=== PATIENT | female | born 1990 | race African-American/Black ===

== ENCOUNTER 2017-04-11 13:01 | Emergency (ER) | payer BC ==
[2017-04-11 13:20] VITALS: BP 118/80
--- NOTE | 2017-04-11 13:20 | EDM.PDOC ---
ED HPI GENERAL MEDICAL PROBLEM - General Chief Complaint: REWEAVER Problem Stated Complaint: 6 WEEKS PREG-BLEEDING AND PAIN Time Seen by Provider: 04/11/17 13:18 Source of Information: Reports: Patient History Limitations: Reports: No Limitations - History of Present Illness INITIAL COMMENTS - FREE TEXT/NARRATIVE: 26-year-old female presents to the ED with acute onset of vaginal bleeding which is bright red in color and with no clots .Associated lower abdominal cramping pain characteristic of menstrual cramps. last trimester. Was reported to be around February 23 making her about 6 weeks gestation. she is not trying to conceive. she's had one previous that ended in a . She is therefore 2 para 0. she has been feeling breast tenderness and associated nausea vomiting with vomiting 2 with morning sickness. does have diffuse associated low back cramping pain.. she has seen Dr. Balderas on several occasions and apparently beta-hCGs have been done repeatedly and we will have comparison values. I think there was some concern identified that her hCG was not doubling every 2-3 days as anticipated suggesting a possible failed . at present she states her pain is 8 out of 10 but she does not wish any analgesia. 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) Abdomen Pain Score (Numeric/FACES): 8 - Related Data Allergies Allergy/AdvReac Type Severity Reaction Status Date / Time No Known Allergies Allergy Verified 04/11/17 13:23 Home Meds: Home Meds Diclofenac Sodium [Voltaren] 50 mg PO Q8H PRN #8 tab.ec 04/11/17 [Rx] PNV95/Ferrous Fumarate/FA [ Tablet] 1 tab PO DAILY 04/11/17 [History] Robutussin Cough 5 ml PO ASDIRECTED 04/11/17 [History] Past Medical History REWEAVER History: Reports: : 2 ( last menstrual period was around February 23 making about 6 weeks gestation.) Para: 0 Social & Family History - Living Situation & Occupation Living situation: Reports: 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 Denies: Fever, Chills, Malaise, Weakness HEENT: Reports: Other ( has had a cold recently and is using some Robitussin plain.) Respiratory: Reports: Cough Cardiovascular: Reports: No Symptoms Endocrine: Reports: Fatigue ( minimal sputum production) GI/Abdominal: Reports: Abdominal Pain ( see history of present illness) : Reports: Other ( acute breakthrough bleeding per vagina without clotting with associated lower abdominal cramping pain) Musculoskeletal: Reports: Back Pain ( within the last hour.) Skin: Reports: No Symptoms Neurological: Reports: No Symptoms ( associated reymundo) Psychiatric: Reports: No Symptoms Hematologic/Lymphatic: Reports: No Symptoms Immunologic: Reports: No Symptoms ED EXAM - Physical Exam Exam: See Below Exam Limited By: No Limitations General Appearance: Alert, WD/WN, Mild Distress, Other ( claaims her pain as 8 out of 10 but she does not appear to be in that kind of distress.) Eye Exam: Bilateral Eye: Normal Inspection ( no signs of anemia) Throat/Mouth: Normal Inspection, Normal Oropharynx Head: Atraumatic, Normocephalic Neck: Normal Inspection, Supple, Non-Tender, Full Range of Motion Respiratory/Chest: No Respiratory Distress, Lungs Clear, Normal Breath Sounds, No Accessory Muscle Use Cardiovascular: Normal Peripheral Pulses, Regular Rate, Rhythm, No Murmur, No Rub GI/Abdominal Exam: Normal Bowel Sounds, Soft, No Organomegaly, Tender ( minimal tenderness suprapubically.). No: Guarding, Rigid, Rebound Back Exam: Normal Inspection, Full Range of Motion. No: CVA Tenderness (L), CVA Tenderness (R) Extremities: Normal Inspection, Normal Range of Motion, Non-Tender, No Pedal Edema, Normal Capillary Refill Neurological: Alert, Oriented, CN II-XII Intact, Normal Cognition, Normal Gait, Normal Reflexes, No Motor/Sensory Deficits Psychiatric: Normal Affect, Normal Mood Skin Exam: Warm, Dry, Intact, Normal Color, No Rash Course - Vital Signs Last Recorded V/S: Last Vital Signs Temp 36.6 C 04/11/17 13:18 Pulse 89 04/11/17 13:18 Resp 20 04/11/17 13:18 BP 118/80 04/11/17 13:18 Pulse Ox 100 04/11/17 13:18 - Orders/Labs/Meds Orders: Active Orders 24 hr Category Date Time Status OB Transvaginal [US] Stat Exams 04/11/17 13:30 Taken Sodium Chloride 0.9% [Normal Saline] 1,000 ml Med 04/11/17 13:30 Active IV ASDIRECTED Medication Orders Sodium Chloride (Normal Saline) 1,000 mls @ 150 mls/hr IV ASDIRECTED JUAQUIN Last Admin: 04/11/17 13:46 Dose: 150 mls/hr Labs: Laboratory Tests 04/11/17 04/11/17 04/11/17 Range/Units 13:35 14:00 14:00 WBC 7.48 (3.98-10.04) K/mm3 RBC 4.86 (3.98-5.22) M/mm3 Hgb 14.2 (11.2-15.7) gm/L Hct 43.7 (34.1-44.9) % MCV 89.9 (79.4-94.8) fl MCH 29.2 (25.6-32.2) pg MCHC 32.5 (32.2-35.5) g/dl RDW Std Deviation 44.2 (36.4-46.3) fL Plt Count 204 (182-369) K/mm3 MPV 10.1 (9.4-12.3) fl Neutrophils % (Manual) 83 H (40-60) % Band Neutrophils % 0 (0-10) % Lymphocytes % (Manual) 15 L (20-40) % Atypical Lymphs % 0 % Monocytes % (Manual) 1 L (2-10) % Eosinophils % (Manual) 1 (0.7-5.8) % Basophils % (Manual) 0 L (0.1-1.2) Platelet Estimate Adequate Plt Morphology Comment Normal RBC Morph Comment Normal Sodium 140 (136-145) mEq/L Potassium 3.9 (3.5-5.1) mEq/L Chloride 104 (98-107) mEq/L Carbon Dioxide 31 (21-32) mEq/L Anion Gap 8.9 (5-15) BUN 10 (7-18) mg/dL Creatinine 0.9 (0.55-1.02) mg/dL Est Cr Clr Drug Dosing 92.11 mL/min Estimated GFR (MDRD) > 60 (>60) mL/min BUN/Creatinine Ratio 11.1 L (14-18) Glucose 90 (74-106) mg/dL Calcium 9.8 (8.5-10.1) mg/dL Total Bilirubin 0.3 (0.2-1.0) mg/dL AST 18 (15-37) U/L ALT 18 (14-59) U/L Alkaline Phosphatase 43 L (46-116) U/L Total Protein 7.9 (6.4-8.2) g/dl Albumin 3.9 (3.4-5.0) g/dl Globulin 4.0 gm/dL Albumin/Globulin Ratio 1.0 (1-2) HCG, Qual (NEGATIVE) HCG, Quant 554.0 mIU/mL Urine Color Yellow (Yellow) Urine Appearance Clear (Clear) Urine pH 7.0 (5.0-8.0) Ur Specific [place]arl 1.015 (1.005-1.030) Urine Protein Negative (Negative) Urine Glucose (UA) Negative (Negative) Urine Ketones Negative (Negative) Urine Occult Blood Trace-lysed H (Negative) Urine Nitrite Negative (Negative) Urine Bilirubin Negative (Negative) Urine Urobilinogen 0.2 (0.2-1.0) Ur Leukocyte Esterase Negative (Negative) Urine RBC 0-5 (0-5) /hpf Urine WBC Not seen (0-5) /hpf Ur Epithelial Cells Not seen (0-5) /hpf Urine Bacteria Not seen (FEW) /hpf Urine Mucus Not seen (FEW) /hpf Blood Type 04/11/17 04/11/17 Range/Units 14:05 14:05 WBC (3.98-10.04) K/mm3 RBC (3.98-5.22) M/mm3 Hgb (11.2-15.7) gm/L Hct (34.1-44.9) % MCV (79.4-94.8) fl MCH (25.6-32.2) pg MCHC (32.2-35.5) g/dl RDW Std Deviation (36.4-46.3) fL Plt Count (182-369) K/mm3 MPV (9.4-12.3) fl Neutrophils % (Manual) (40-60) % Band Neutrophils % (0-10) % Lymphocytes % (Manual) (20-40) % Atypical Lymphs % % Monocytes % (Manual) (2-10) % Eosinophils % (Manual) (0.7-5.8) % Basophils % (Manual) (0.1-1.2) Platelet Estimate Plt Morphology Comment RBC Morph Comment Sodium (136-145) mEq/L Potassium (3.5-5.1) mEq/L Chloride (98-107) mEq/L Carbon Dioxide (21-32) mEq/L Anion Gap (5-15) BUN (7-18) mg/dL Creatinine (0.55-1.02) mg/dL Est Cr Clr Drug Dosing mL/min Estimated GFR (MDRD) (>60) mL/min BUN/Creatinine Ratio (14-18) Glucose (74-106) mg/dL Calcium (8.5-10.1) mg/dL Total Bilirubin (0.2-1.0) mg/dL AST (15-37) U/L ALT (14-59) U/L Alkaline Phosphatase (46-116) U/L Total Protein (6.4-8.2) g/dl Albumin (3.4-5.0) g/dl Globulin gm/dL Albumin/Globulin Ratio (1-2) HCG, Qual Positive H (NEGATIVE) HCG, Quant mIU/mL Urine Color (Yellow) Urine Appearance (Clear) Urine pH (5.0-8.0) Ur Specific [place]arl (1.005-1.030) Urine Protein (Negative) Urine Glucose (UA) (Negative) Urine Ketones (Negative) Urine Occult Blood (Negative) Urine Nitrite (Negative) Urine Bilirubin (Negative) Urine Urobilinogen (0.2-1.0) Ur Leukocyte Esterase (Negative) Urine RBC (0-5) /hpf Urine WBC (0-5) /hpf Ur Epithelial Cells (0-5) /hpf Urine Bacteria (FEW) /hpf Urine Mucus (FEW) /hpf Blood Type O POSITIVE Meds: Medications Generic Name Dose Route Start Last Admin Trade Name Freq PRN Reason Stop Dose Admin Sodium Chloride 1,000 mls @ 150 mls/hr 04/11/17 13:30 04/11/17 13:46 Normal Saline IV 150 mls/hr ASDIRECTED JUAQUIN Administration - Radiology Interpretation Free Text/Narrative:: 26-year-old female presents to the ED with acute onset of bleeding per vagina with associated menstrual cramping pain. she is confirm both at home and in the clinic and apparently beta-hCGs have been followed a couple of occasions and are not doubling as anticipated. Therefore concern appreciated for possible failing . I therefore will not perform a pelvic exam. Will proceed with a transvaginal ultrasound routine labs to include a beta hCG qualitative and quantitative levels and type and screen. at present she does not want any analgesia. - Re-Assessments/Exams Free Text/Narrative Re-Assessment/Exam: 04/11/17 14:57 I am and now in receipt of Dr. Balderas's dictation notes him the end of March. she was seen on 02 April with a quantitative beta-hCG of 2267 on April 05 there was some 1610 and on April 07 it was 1 thousand 208 i.e. a failing . She was advised to expect cramping and bleeding with past some passage of a small amount of tissue. therefore it is unclear why she decided to attend the ER today. the right-sided her blood type was positive. This would've prevented a great deal of unnecessary investigation of this information would've been more readily available to me. the patient was not very forthcoming about the results either because of denial or misunderstanding. 04/11/17 14:59 labs today reveal hemoglobin is good at 14.2 white count 7.48 platelets 204,000. Chemistry normal quantitative beta-hCG to is 554 today. still having a lot of lower abdominal discomfort. I will therefore give her Toradol 30 mg IV. I plan on sending her home with Voltaren 50 mg every 8 hours as necessary for relief of pain. Given to excuse her from the workplace today. She is off work tomorrow. She is advised to follow-up in clinic in 2 weeks' time to have another beta hCG done to make sure that it returns to 0. Departure - Departure Time of Disposition: 15:07 Disposition: Home, Self-Care 01 Condition: Fair Clinical Impression: Incomplete miscarriage - Discharge Information Prescriptions: Diclofenac Sodium [Voltaren] 50 mg PO Q8H PRN #8 tab.ec PRN Reason: abdominal cramping pain Referrals: Yg Balderas MD [Primary Care Provider] - Forms: ED Department Discharge Additional Instructions: evaluation in the emergency room today in regards to known with sudden onset of bright red bleeding per vagina and a lower abdominal cramping pain. Dr. Balderas has been following you along in clinic and identified a gradually decreasing amount of hormone of in the bloodstream indicating failed . therefore was expected that you would develop bleeding per vagina with increased cramping and had fairly heavy flow for a few days due to miscarriage. the ultrasound confirmed a small crenated gestational sac with no embryonic heart tones identified no embryonic pole identified compatible with failed . Also the quantitative beta-hCG or hormone of in the bloodstream today was only 554 again slowly coming down towards 0. expected heavy flow per vagina over the next 2 days and then a nremt flow over the next 3-4 days. Toradol 30 mg was given in the emergency room for relief of abdominal cramping pain. Suggest use of Voltaren 50 mg every 8 hours as needed for relief of further abdominal cramping pain. will have to miss work today to do due to current illness. Tentatively May return to work on Wednesday. - My Orders Last 24 Hours: My Active Orders 04/11/17 13:30 OB Transvaginal [US] Stat Sodium Chloride 0.9% [Normal Saline] 1,000 ml IV ASDIRECTED - Assessment/Plan Last 24 Hours: My Active Orders 04/11/17 13:30 OB Transvaginal [US] Stat Sodium Chloride 0.9% [Normal Saline] 1,000 ml IV ASDIRECTED
[2017-04-11] MEDS ORDERED: Sodium Chloride 0.9% 1,000 ML IV SCH (13:30)
[2017-04-11] MEDS ORDERED: Ketorolac 30 MG/ML SDV IVPUSH SCH (15:15)
--- NOTE | 2017-04-12 18:00 | US ---
First trimester obstetrical ultrasound: Multiple real-time images were obtained transvaginally. Comparison: No previous obstetrical ultrasound. Dates: LMP: LMP given as 02/23/17, SUMMER 11/30/17, gestational age 6 weeks 5 days Current ultrasound: SUMMER 12/10/17, gestational age 5 weeks 2 days Findings: Small intrauterine gestational sac is seen but no yolk sac or pole is seen at this time. Incidental nabothian cyst is present. Maternal ovaries are within normal limits. Measurements: Mean sac diameter: 0.7 cm - 5 weeks 2 days Impression: 1. Small gestational sac without pole or yolk sac. This may relate to early gestational age. Recommend follow-up pelvic ultrasound in 11 days to further evaluate. Diagnostic code #3 Agree with preliminary report issued by [employer] ([facility] preliminary report dictated on 04/11/17, 4:01 PM Central Time)
== END 2017-04-11 15:30 | disposition home or self-care (01) ==
LOC: JD.ED 13:01
DX: O03.4 Incomplete spontaneous abortion without complication (principal)
CPT/HCPCS: 36415; 76817; 80053; 81001; 84702; 84703; 85025; 86900; 86901; 96361; 96374; 99284; J1885; J7040

== ENCOUNTER 2018-10-29 09:02 | Inpatient (IN) | payer BC ==
--- NOTE | 2018-10-29 09:46 | PCM.LDHP ---
L&D History of Present Illness - General Date of Service: 10/29/18 Admit Problem/Dx: Admission Diagnosis/Problem Admission Diagnosis/Problem Source of Information: Patient - History of Present Illness Introduction:: 28-year-old 4 para 0030 female with an SUMMER of 10/28/2018 by trimester ultrasound presents with painful uterine contractions that started at 3 AM. Her care has been with Dr. Staples complicated by 1. ancestry requiring population screening genetic screening genetic testing which was negative 2. 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: Reports: Social & Family History - Living Situation & Occupation Living situation: Reports: 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.) H&P Review of Systems - Review of Systems: Review Of Systems: See Below General: Reports: No Symptoms HEENT: Reports: No Symptoms Pulmonary: Reports: No Symptoms Cardiovascular: Reports: No Symptoms Gastrointestinal: Reports: No Symptoms Genitourinary: Reports: No Symptoms Musculoskeletal: Reports: No Symptoms Skin: Reports: No Symptoms Psychiatric: Reports: No Symptoms Neurological: Reports: No Symptoms Hematologic/Lymphatic: Reports: No Symptoms Immunologic: Reports: No Symptoms L&D Exam - Exam Exam: See Below - OB Specific Contraction Intensity: Moderate to Strong Movement: Active Heart Tones: Present Heart Tones per Min: 150 Heart Rate (FHR) Variability: Moderate (6-25 bmp) Presentation: Vertex - Doss Score Doss Score Cervix Position: Midposition Doss Score Consistency: Soft Doss Score Effacement: >80% Doss Score Dilation: 1-2 cm Doss Score 's Station: -2 Doss Score Total: 8 - Exam General: Alert, Oriented HEENT: PERRLA, Conjunctiva Clear, EACs Clear, EOMI, Hearing Intact, Mucosa Moist & [place], Nares Patent, Normal Nasal Septum, Posterior Pharynx Clear, TMs Clear Neck: Supple, Trachea Midline Lungs: Clear to Auscultation, Normal Respiratory Effort Cardiovascular: Regular Rate, Regular Rhythm GI/Abdominal Exam: Normal Bowel Sounds, Soft, Non-Tender, No Organomegaly, No Distention, No Abnormal Bruit, No Mass, Pelvis Stable Rectal Exam: Normal Exam, Normal Rectal Tone Back Exam: Normal Inspection, Full Range of Motion Extremities: Normal Inspection, Normal Range of Motion, Non-Tender, No Pedal Edema, Normal Capillary Refill Skin: Warm, Dry, Intact Neurological: Cranial Nerves Intact, Reflexes Equal Bilateral Psychiatric: Alert, Normal Affect, Normal Mood Problem List Initiated/Reviewed/Updated: Yes Assessment/Plan Comment:: 28 year old here at 40w1 here in labor -GBS negative -At this time declines epidural -Anticipate unless otherwise indicated
[2018-10-29] MEDS ORDERED: Sodium Chloride 0.9% 10 ML Syringe FLUSH PRN (09:49)
[2018-10-29] MEDS ORDERED: Nalbuphine 20 MG/ML 1 ML Syringe IVPUSH PRN (09:49)
[2018-10-29] MEDS ORDERED: Ondansetron 4 MG/2 ML SDV IVPUSH PRN (09:49)
[2018-10-29] MEDS ORDERED: Oxytocin/Lactated Ringers 10 UNIT/1,000 ML BAG IV SCH ×2 (10:00→16:15)
[2018-10-29] MEDS ORDERED: ePHEDrine 50 MG/ML SDV IVPUSH PRN (14:41)
[2018-10-29] MEDS ORDERED: fentaNYL 100 MCG/2 ML SDV EPIDUR PRN (14:41)
[2018-10-29] MEDS ORDERED: diphenhydrAMINE 50 MG/ML SDV IVPUSH PRN (14:41)
[2018-10-29] MEDS: Lactated Ringers 1,000 ML IV SCH ×3 (14:46→21:55)
[2018-10-29] MEDS: fentaNYL/Bupivacaine-NS 2 MCG/ML-0.125%/PF 100 ML Bag EPIDUR SCH (15:15)
--- NOTE | 2018-10-29 15:23 | PCM.PREANE ---
Preanesthetic Assessment - Anesthesia/Transfusion/Family Hx Anesthesia History: Prior Anesthesia Without Reaction Family History of Anesthesia Reaction: No Transfusion History: No Prior Transfusion(s) - Review of Systems General: No Symptoms Pulmonary: No Symptoms Cardiovascular: No Symptoms Gastrointestinal: No Symptoms, Abdominal Pain (labor pain) Neurological: No Symptoms Other: Reports: None - Physical Assessment Pulse: 69 O2 Sat by Pulse Oximetry: 100 Respiratory Rate: 18 Blood Pressure: 123/62 Temperature: 36.4 C Vital Signs: Last Vital Signs Temp 36.6 C 10/29/18 09:50 Pulse 95 10/29/18 09:50 Resp 18 10/29/18 09:50 BP 122/73 10/29/18 09:50 Pulse Ox 100 10/29/18 09:50 Height: 1.73 m Weight: 86.863 kg ASA Class: 2 Mental Status: Alert & Oriented x3 Airway Class: Mallampati = 1 Dentition: Reports: Normal Dentition Thyro-Mental Finger Breadths: 3 Mouth Opening Finger Breadths: 3 ROM/Head Extension: Full Lungs: Clear to Auscultation, Normal Respiratory Effort Cardiovascular: Regular Rate, Regular Rhythm - Lab Values: Laboratory Last Values WBC 12.22 K/mm3 (3.98-10.04) H 10/29/18 10:05 RBC 4.37 M/mm3 (3.98-5.22) 10/29/18 10:05 Hgb 12.8 gm/L (11.2-15.7) 10/29/18 10:05 Hct 38.4 % (34.1-44.9) 10/29/18 10:05 MCV 87.9 fl (79.4-94.8) 10/29/18 10:05 MCH 29.3 pg (25.6-32.2) 10/29/18 10:05 MCHC 33.3 g/dl (32.2-35.5) 10/29/18 10:05 RDW Std Deviation 46.8 fL (36.4-46.3) H 10/29/18 10:05 Plt Count 223 K/mm3 (182-369) 10/29/18 10:05 MPV 10.1 fl (9.4-12.3) 10/29/18 10:05 Neut % (Auto) 72.4 % (34.0-71.1) H 10/29/18 10:05 Lymph % (Auto) 17.2 % (19.3-51.7) L 10/29/18 10:05 Phelps % (Auto) 8.1 % (4.7-12.5) 10/29/18 10:05 Eos % (Auto) 0.6 (0.7-5.8) L 10/29/18 10:05 Baso % (Auto) 0.3 % (0.1-1.2) 10/29/18 10:05 Neut # (Auto) 8.85 K/mm3 (1.56-6.13) H 10/29/18 10:05 Lymph # (Auto) 2.10 K/mm3 (1.18-3.74) 10/29/18 10:05 Phelps # (Auto) 0.99 K/mm3 (0.24-0.36) H 10/29/18 10:05 Eos # (Auto) 0.07 K/mm3 (0.04-0.36) 10/29/18 10:05 Baso # (Auto) 0.04 K/mm3 (0.01-0.08) 10/29/18 10:05 Manual Slide Review Normal smear 10/29/18 10:05 Blood Type O POSITIVE 10/29/18 10:05 Gel Antibody Screen Negative 10/29/18 10:05 - Allergies Allergies/Adverse Reactions: Allergies Allergy/AdvReac Type Severity Reaction Status Date / Time No Known Allergies Allergy Verified 10/29/18 09:49 - Anesthesia Plan Pre-Op Medication Ordered: None - Acknowledgements Anesthesia Type Planned: Epidural Pt an Appropriate Candidate for the Planned Anesthesia: Yes Alternatives and Risks of Anesthesia Discussed w Pt/Guardian: Yes Pt/Guardian Understands and Agrees with Anesthesia Plan: Yes PreAnesthesia Questionnaire Gastrointestinal History: Reports: GERD 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 Smoking Status *Q: Never Smoker Second Hand Smoke Exposure: No Recreational Drug Use History: No - HOME MEDS Home Medications: Home Meds Diclofenac Sodium [Voltaren] 50 mg PO Q8H PRN #8 tab.ec 04/11/17 [Rx] PNV95/Ferrous Fumarate/FA [ Tablet] 1 tab PO DAILY 04/11/17 [History] Robutussin Cough 5 ml PO ASDIRECTED 04/11/17 [History] - CURRENT (IN HOUSE) MEDS Current Meds: Current Medications Diphenhydramine HCl (Benadryl) 25 mg IVPUSH Q6H PRN PRN Reason: Itching Ephedrine Sulfate (Ephedrine Sulfate) 5 mg IVPUSH ASDIRECTED PRN PRN Reason: HYPOTENTSION Fentanyl (Sublimaze) 100 mcg EPIDUR Q3H PRN PRN Reason: Pain Last Admin: 10/29/18 15:15 Dose: 100 mcg Fentanyl/Bupivacaine HCl (Rsfvvqef-Tjsol-Mu 2 Mcg/Ml-0.125%) 100 ml EPIDUR ASDIRECTED JUAQUIN Last Admin: 10/29/18 15:15 Dose: 100 ml Lactated Ringer's (Ringers, Lactated) 1,000 mls @ 100 mls/hr IV ASDIRECTED JUAQUIN Last Admin: 10/29/18 14:46 Dose: 100 mls/hr Oxytocin/Lactated Ringer's (Pitocin In Lr 10 Units/1,000 Ml) 10 unit in 1,000 mls @ 500 mls/hr IV .CONTINUOUS JUAQUIN Nalbuphine HCl (Nubain) 10 mg IVPUSH Q2H PRN PRN Reason: pain Ondansetron HCl (Zofran) 4 mg IVPUSH Q4H PRN PRN Reason: Nausea/Vomiting Sodium Chloride (Saline Flush) 10 ml FLUSH ASDIRECTED PRN PRN Reason: Keep Vein Open
[2018-10-30] MEDS: fentaNYL/Bupivacaine-NS 2 MCG/ML-0.125%/PF 100 ML Bag EPIDUR SCH
[2018-10-30] MEDS: Lactated Ringers 1,000 ML IV SCH (00:49)
[2018-10-30] MEDS ORDERED: Methylergonovine 0.2 MG/1 ML Amp ONE (03:52)
[2018-10-30] MEDS ORDERED: Bupivacaine 0.25% 10 ML SDV ONE (04:00)
--- NOTE | 2018-10-30 04:02 | PCM.SN ---
- Free Text/Narrative Note: Stage I - Patient presented in active labor. Progressed to complete with pitocin augmentation. Epidural for anesthesia. No significant fluid noted with AROM Stage II - With pushing meconium noted. of viable female, weight 3180g, APGARS 8/9 at 0334. Head delivered in controlled manner over intact perineum. Mild shoulder dystocia resolved with Kervin and remainder of delivered without difficulty. Cord clamped and cut and baby placed on warmer where Dr. Chan was awaiting delivery after her presence had been requested due to meconium. Stage III - on intact placenta. Significant bleeding. Bladder emptied. Bleeding slowed. Small labial laceration repaired with 3-0 vicryl. More bleeding noted. Uterine exploration revealed small clots. methergine given. Firm uterus again. EBL 1300
[2018-10-30] MEDS ORDERED: Lanolin 100% Cream 7 GM Tube TOP PRN (05:08)
[2018-10-30] MEDS ORDERED: Benzocaine/Menthol 20%-0.5% Spray 56 GM Canister TOP PRN (05:08)
[2018-10-30] MEDS: Ibuprofen 600 MG Tab PO PRN ×3 (05:38→21:54)
[2018-10-30] MEDS: Witch Hazel Medicated Pads 40/Jar TOP PRN ×2 (05:39→13:08)
--- NOTE | 2018-10-30 07:45 | PCM48HPAN ---
Post Anesthesia Note - EVALUATION WITHIN 48HRS OF ANESTHETIC Vital Signs in Normal Range: Yes Patient Participated in Evaluation: Yes Respiratory Function Stable: Yes Airway Patent: Yes Cardiovascular Function Stable: Yes Hydration Status Stable: Yes Pain Control Satisfactory: Yes Nausea and Vomiting Control Satisfactory: Yes Mental Status Recovered: Yes Pulse Rate: 69 Resp Rate: 18 Temperature: 36.4 C Blood Pressure: 123/62 - COMMENTS/OBSERVATIONS Free Text/Narrative:: no anesthesia complications noted
[2018-10-31] MEDS ORDERED: Acetaminophen 325 MG Tab PO PRN (00:55)
[2018-10-31] MEDS: Ibuprofen 600 MG Tab PO PRN ×3 (03:31→21:13)
--- NOTE | 2018-10-31 07:49 | PCM.PNPP ---
- General Info Date of Service: 10/31/18 Functional Status: Reports: Pain Controlled - Review of Systems General: Reports: No Symptoms HEENT: Reports: No Symptoms Pulmonary: Reports: No Symptoms Cardiovascular: Reports: No Symptoms Gastrointestinal: Reports: No Symptoms Genitourinary: Reports: No Symptoms Musculoskeletal: Reports: No Symptoms Skin: Reports: No Symptoms Neurological: Reports: No Symptoms Psychiatric: Reports: No Symptoms - General Info Date of Service: 10/31/18 - Patient Data Vital Signs - Most Recent: Last Vital Signs Temp 37.0 C 10/31/18 03:00 Pulse 80 10/31/18 02:52 Resp 16 10/31/18 02:52 BP 105/54 L 10/31/18 02:52 Pulse Ox 95 10/31/18 02:52 Weight - Most Recent: 86.863 kg Lab Results - Last 24 Hours: Laboratory Results - last 24 hr 10/30/18 Range/Units 06:40 Manual Slide Review Abnormal smear Med Orders - Current: Current Medications Acetaminophen (Tylenol) 325 mg PO Q4H PRN PRN Reason: Abdominal Pain Last Admin: 10/31/18 01:01 Dose: 325 mg Benzocaine/Menthol (Dermoplast Pain Relief [place]) 0 gm TOP ASDIRECTED PRN PRN Reason: Perineal Comfort Measure Last Admin: 10/30/18 05:39 Dose: 1 can Docusate Sodium (Colace) 100 mg PO BID PRN PRN Reason: Constipation Emollient Ointment (Lansinoh Hpa) 0 gm TOP ASDIRECTED PRN PRN Reason: Sore Nipples Last Admin: 10/30/18 21:55 Dose: 1 applic Ibuprofen (Motrin) 600 mg PO Q6H PRN PRN Reason: Mild pain or fever Last Admin: 10/31/18 03:31 Dose: 600 mg Witch Saba (Tucks) 1 pad TOP ASDIRECTED PRN PRN Reason: Pain Last Admin: 10/30/18 13:08 Dose: 1 applic Discontinued Medications Diphenhydramine HCl (Benadryl) 25 mg IVPUSH Q6H PRN PRN Reason: Itching Ephedrine Sulfate (Ephedrine Sulfate) 5 mg IVPUSH ASDIRECTED PRN PRN Reason: HYPOTENTSION Last Admin: 10/29/18 15:19 Dose: 5 mg Fentanyl (Sublimaze) 100 mcg EPIDUR Q3H PRN PRN Reason: Pain Last Admin: 10/29/18 15:15 Dose: 100 mcg Fentanyl/Bupivacaine HCl (Nbiimzjo-Dzwwo-Fa 2 Mcg/Ml-0.125%) 100 ml EPIDUR ASDIRECTED JUAQUIN Last Admin: 10/30/18 00:00 Dose: 100 ml Lactated Ringer's (Ringers, Lactated) 1,000 mls @ 100 mls/hr IV ASDIRECTED JUAQUIN Last Admin: 10/30/18 00:49 Dose: 100 mls/hr Oxytocin/Lactated Ringer's (Pitocin In Lr 10 Units/1,000 Ml) 10 unit in 1,000 mls @ 500 mls/hr IV .CONTINUOUS JUAQUIN Last Admin: 10/30/18 03:39 Dose: 500 mls/hr Oxytocin/Lactated Ringer's (Pitocin In Lr 10 Units/1,000 Ml) 10 unit in 1,000 mls @ 12 mls/hr IV TITRATE JUAQUIN; Protocol Last Titration: 10/30/18 00:00 Dose: 6 munits/min, 36 mls/hr Methylergonovine Maleate (Methergine) Confirm Administered Dose 0.2 mg .ROUTE .[place]-[facility] ONE Stop: 10/30/18 03:53 Last Admin: 10/30/18 03:56 Dose: 0.2 mg Nalbuphine HCl (Nubain) 10 mg IVPUSH Q2H PRN PRN Reason: pain Ondansetron HCl (Zofran) 4 mg IVPUSH Q4H PRN PRN Reason: Nausea/Vomiting Sodium Chloride (Saline Flush) 10 ml FLUSH ASDIRECTED PRN PRN Reason: Keep Vein Open - Interaction Infant Disposition, : [place] to Nursery Support Person: - Recovery Exam Fundal Tone: Firm Fundal Level: 1 Fingerbreadths Below Umbilicus Fundal Placement: Midline Lochia Amount: Scant Lochia Color: Rubra/Red Perineum Description: Other (see below) Other Perinuem Description: 1st degree with repair Episiotomy/Laceration: Approximated Bladder Status: Voiding Urinary Elimination: Voided - Exam General: Alert, Oriented HEENT: Pupils Equal Neck: Supple Lungs: Clear to Auscultation, Normal Respiratory Effort Cardiovascular: Regular Rate, Regular Rhythm GI/Abdominal Exam: Normal Bowel Sounds, Soft, Non-Tender, No Organomegaly, No Distention, No Abnormal Bruit, No Mass, Pelvis Stable Extremities: Normal Inspection, Normal Range of Motion, Non-Tender, No Pedal Edema, Normal Capillary Refill Skin: Warm, Dry, Intact Wound/Incisions: Healing Well Neurological: No New Focal Deficit Psy/Mental Status: Alert, Normal Affect, Normal Mood - Problem List Review Problem List Initiated/Reviewed/Updated: Yes - My Orders Last 24 Hours: My Active Orders 10/31/18 00:55 Acetaminophen [Tylenol] 325 mg PO Q4H PRN 10/31/18 05:08 Heat Therapy [OM.PC] PRN 10/31/18 Breakfast Regular Diet [DIET] - Assessment Assessment:: PPD1 Doing well. Probable discharge tomorrow.
[2018-10-31] MEDS: Docusate Sodium 100 MG Cap PO PRN (16:26)
[2018-11-01] MEDS: Ibuprofen 600 MG Tab PO PRN (04:45)
[2018-11-01] MEDS: Docusate Sodium 100 MG Cap PO PRN (04:46)
--- NOTE | 2018-11-01 06:46 | PCM.DCSUM1 ---
Discharge Summary - Hospital Course Diagnosis: Stroke: No - Discharge Data Discharge Date: 11/01/18 Discharge Disposition: Home, Self-Care 01 Condition: Good - Patient Instructions Diet: Usual Diet as Tolerated Activity: No Strenuous Activities Driving: May Drive Today Showering/Bathing: May Shower Notify Provider of: Fever, Increased Pain, Swelling and Redness, Drainage, Nausea and/or Vomiting - Discharge Plan *PRESCRIPTION DRUG MONITORING PROGRAM REVIEWED*: No *COPY OF PRESCRIPTION DRUG MONITORING REPORT IN PATIENT WOJCIECH: No Home Medications: Home Meds Diclofenac Sodium [Voltaren] 50 mg PO Q8H PRN #8 tab.ec 04/11/17 [Rx] PNV95/Ferrous Fumarate/FA [ Tablet] 1 tab PO DAILY 04/11/17 [History] Robutussin Cough 5 ml PO ASDIRECTED 04/11/17 [History] Referrals: Young Staples MD [Primary Care Provider] - - Discharge Summary/Plan Comment DC Time >30 min.: No - General Info Date of Service: 11/01/18 Subjective Update: PPD2. Doing great. Would like to go home today. Minimal bleeding. Functional Status: Reports: Pain Controlled - Review of Systems General: Reports: No Symptoms HEENT: Reports: No Symptoms Pulmonary: Reports: No Symptoms Cardiovascular: Reports: No Symptoms Gastrointestinal: Reports: No Symptoms Genitourinary: Reports: No Symptoms Musculoskeletal: Reports: No Symptoms Skin: Reports: No Symptoms Neurological: Reports: No Symptoms Psychiatric: Reports: No Symptoms - Patient Data Vitals - Most Recent: Last Vital Signs Temp 37.2 C 11/01/18 02:34 Pulse 94 11/01/18 02:34 Resp 15 11/01/18 02:34 BP 124/72 11/01/18 02:34 Pulse Ox 98 11/01/18 02:34 Weight - Most Recent: 86.863 kg I&O - Last 24 hours: Intake & Output 10/31/18 10/31/18 11/01/18 14:59 22:59 06:59 Intake Total 180 Balance 180 Med Orders - Current: Current Medications Acetaminophen (Tylenol) 325 mg PO Q4H PRN PRN Reason: Abdominal Pain Last Admin: 10/31/18 01:01 Dose: 325 mg Benzocaine/Menthol (Dermoplast Pain Relief [place]) 0 gm TOP ASDIRECTED PRN PRN Reason: Perineal Comfort Measure Last Admin: 10/30/18 05:39 Dose: 1 can Docusate Sodium (Colace) 100 mg PO BID PRN PRN Reason: Constipation Last Admin: 11/01/18 04:46 Dose: 100 mg Emollient Ointment (Lansinoh Hpa) 0 gm TOP ASDIRECTED PRN PRN Reason: Sore Nipples Last Admin: 10/30/18 21:55 Dose: 1 applic Ibuprofen (Motrin) 600 mg PO Q6H PRN PRN Reason: Mild pain or fever Last Admin: 11/01/18 04:45 Dose: 600 mg Witch Saba (Tucks) 1 pad TOP ASDIRECTED PRN PRN Reason: Pain Last Admin: 10/30/18 13:08 Dose: 1 applic Discontinued Medications Bupivacaine HCl (Sensorcaine-Mpf 0.25%) 10 ml .ROUTE .[facility] ONE Stop: 10/30/18 04:01 Diphenhydramine HCl (Benadryl) 25 mg IVPUSH Q6H PRN PRN Reason: Itching Ephedrine Sulfate (Ephedrine Sulfate) 5 mg IVPUSH ASDIRECTED PRN PRN Reason: HYPOTENTSION Last Admin: 10/29/18 15:19 Dose: 5 mg Fentanyl (Sublimaze) 100 mcg EPIDUR Q3H PRN PRN Reason: Pain Last Admin: 10/29/18 15:15 Dose: 100 mcg Fentanyl/Bupivacaine HCl (Edztptal-Fbmzy-Ti 2 Mcg/Ml-0.125%) 100 ml EPIDUR ASDIRECTED JUAQUIN Last Admin: 10/30/18 00:00 Dose: 100 ml Lactated Ringer's (Ringers, Lactated) 1,000 mls @ 100 mls/hr IV ASDIRECTED JUAQUIN Last Admin: 10/30/18 00:49 Dose: 100 mls/hr Oxytocin/Lactated Ringer's (Pitocin In Lr 10 Units/1,000 Ml) 10 unit in 1,000 mls @ 500 mls/hr IV .CONTINUOUS JUAQUIN Last Admin: 10/30/18 03:39 Dose: 500 mls/hr Oxytocin/Lactated Ringer's (Pitocin In Lr 10 Units/1,000 Ml) 10 unit in 1,000 mls @ 12 mls/hr IV TITRATE JUAQUIN; Protocol Last Titration: 10/30/18 00:00 Dose: 6 munits/min, 36 mls/hr Methylergonovine Maleate (Methergine) Confirm Administered Dose 0.2 mg .ROUTE .[facility] ONE Stop: 10/30/18 03:53 Last Admin: 10/30/18 03:56 Dose: 0.2 mg Nalbuphine HCl (Nubain) 10 mg IVPUSH Q2H PRN PRN Reason: pain Ondansetron HCl (Zofran) 4 mg IVPUSH Q4H PRN PRN Reason: Nausea/Vomiting Sodium Chloride (Saline Flush) 10 ml FLUSH ASDIRECTED PRN PRN Reason: Keep Vein Open - Exam General: Reports: Alert, Oriented HEENT: Reports: Pupils Equal, Pupils Reactive, EOMI, Mucous Membr. Moist/[place] Neck: Reports: Supple Lungs: Reports: Clear to Auscultation, Normal Respiratory Effort Cardiovascular: Reports: Regular Rate, Regular Rhythm GI/Abdominal Exam: Normal Bowel Sounds, Soft, Non-Tender, No Organomegaly, No Distention, No Abnormal Bruit, No Mass, Pelvis Stable Back Exam: Reports: Normal Inspection, Full Range of Motion Extremities: Normal Inspection, Normal Range of Motion, Non-Tender, No Pedal Edema, Normal Capillary Refill Skin: Reports: Warm, Dry, Intact Wound/Incisions: Reports: Healing Well Neurological: Reports: No New Focal Deficit Psy/Mental Status: Reports: Alert, Normal Affect, Normal Mood
[2018-11-01 11:17] VITALS: BP 110/58
== END 2018-11-01 11:42 | disposition home or self-care (01) | DRG 560 ==
LOC: JD.OB 09:02 → JD.OBCHECK 09:02 → JD.OB 09:05 → JD.OBCHECK 09:05 → OBSVTOIN 10-30 03:34 → JD.OB 10-30 03:35
PROVIDERS: ADMIT Obstetrics & Gynecology; ATTEND Obstetrics & Gynecology
PROC: 3E0R3BZ Introduction of Anesthetic Agent into Spinal Canal, Percutaneous Approach (ICD-10-PCS; 2018-10-29)
PROC: 00HU33Z Insertion of Infusion Device into Spinal Canal, Percutaneous Approach (ICD-10-PCS; 2018-10-29)
PROC: 10907ZC Drainage of Amniotic Fluid, Therapeutic from Products of Conception, Via Natural or Artificial Opening (ICD-10-PCS; principal; 2018-10-30)
PROC: 0UC97ZZ Extirpation of Matter from Uterus, Via Natural or Artificial Opening (ICD-10-PCS; principal; 2018-10-30)
PROC: 10E0XZZ Delivery of Products of Conception, External Approach (ICD-10-PCS; principal; 2018-10-30)
PROC: 0UQMXZZ Repair Vulva, External Approach (ICD-10-PCS; principal; 2018-10-30)
DX: O48.0 Post-term pregnancy (principal); Z3A.40 40 weeks gestation of pregnancy; O77.0 Labor and delivery complicated by meconium in amniotic fluid; O66.0 Obstructed labor due to shoulder dystocia; O70.0 First degree perineal laceration during delivery; O72.1 Other immediate postpartum hemorrhage; Z37.0 Single live birth; O99.62 Diseases of the digestive system complicating childbirth; K21.9 Gastro-esophageal reflux disease without esophagitis
CPT/HCPCS: 36415; 51702; 59025; 59409; 85025; 86592; 86850; 86900; 86901; A9270-GY; J2210; J2590; J3010; J3490; J7120

== ENCOUNTER 2021-02-03 18:49 | Inpatient (IN) | payer BC ==
[2021-02-03] MEDS ORDERED: Sodium Chloride 0.9% 10 ML Syringe FLUSH PRN (19:52)
[2021-02-03] MEDS ORDERED: Lidocaine 1% 50 ML MDV INJECT ONE (19:52)
[2021-02-03] MEDS ORDERED: Lactated Ringers 1,000 ML IV SCH (20:00)
[2021-02-03] MEDS ORDERED: Oxytocin/Lactated Ringers 10 UNIT/1,000 ML BAG IV SCH (20:00)
--- NOTE | 2021-02-03 20:53 | PCM.LDHP ---
L&D History of Present Illness - General Date of Service: 02/03/21 Admit Problem/Dx: Patient Status Order with Admit Dx/Problem 02/03/21 19:21 Patient Status [ADT] Routine 02/03/21 19:53 Patient Status [ADT] Routine Admission Diagnosis/Problem Admission Diagnosis/Problem 02/03/21 20:37 Zulema is a 30-year-old 5 para 1-0-3-1 female presently at 37-1/7 weeks gestational age with an SUMMER of 02/22/2021 in active labor with spontaneous rupture membranes with resultant clear amniotic fluid. Source of Information: Patient, Other History Limitations: Reports: No Limitations - History of Present Illness Introduction:: Zulema is a 30-year-old 5 para 1-0-3-1 female presently at 37-1/7 weeks gestational age with an SUMMER of 02/22/2021 in active labor with spontaneous rupture membranes with resultant clear amniotic fluid. She reports at approximately 1600 hrs. today she had a gush of fluid after which she had continuous leakage of clear amniotic fluid. AmniSure on admission to the hospital is positive. She is nicky every 2 to 5 minutes. They are very mild in nature. Vital signs are stable. heart tones are very reassuring. 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 She had menarche at approximately age 12. Cycles monthly and regular. LMP 05/18/2020. Her last menstrual period is the dating parameter used to date the and is supported by 2 ultrasounds done at 9 weeks and 28 weeks gestational age. Patient's menstrual periods last 5 to 7 days. She is not using any control at the time of conception. course: Patient has only been seen 4 times during the course the . First evaluation was at 9 weeks gestational age at which time ultrasound confirmed last menstrual period dating. She has had no problems during the by her report. Her weight gain has been from 179pounds to 214 pounds for a 35.8 pound increase. She reports good activity. Fundal height growth has been appropriate. Last evaluation clinic she was noted to be 2 cm dilated, 60% effaced, -3 station, soft, mid position. She has been on promethazine and Zofran for nausea. Cyclobenzaprine taken as needed for pain and she is on vitamins. She is group B strep negative. Induction was set up for 02/24/2021. Laboratory testing shows blood to be O+ with negative antibody screen. Her hemoglobin was 13.5 g/dL and platelets 260,000 at first visit. Urine culture was negative. Hepatitis B surface antigen was negative. Anti-HCV antibody was negative at less than 0.1. TSH on 07/25/2020 was normal at 0.717. Her second trimester labs showed hemoglobin 11.9 g/dL and platelets were 213,000. Her group B strep screen was negative on 01/27/2021. Patient has had her Tdap on 01/13/2021. She has received her hepatitis B immunization in 2017. Allergies: None Medications: 1. Promethazine HCl 12.5 mg tablets 1-2 tabs every 6 hours as needed for nausea. 2. Zofran 4 mg dissolving tablet 1 tablet under tongue every 4 hours as needed for nausea. 3. Cyclobenzaprine HCL 10 mg p.o. 3 times a day as needed for pain 4. vitamins 1 p.o. daily Past medical history: 1. Normal spontaneous vaginal delivery 10/30/2018 at 40-2/7 weeks gestational agefemale born at 7 pounds 0 ounces via . Had epidural in place. He was born at [facility] in [place]. She had a first-degree laceration. 2. Spontaneous x2 first trimester 3. Elective termination of Past surgical history: 1. [place] teeth extraction Family history: Mother and father are alive. Father with hypertension. Mother with thyroid dysfunction on medications. Siblings generally healthy. All grandparents with exception 1 are . Family history of hypertension, heart disease. Social history: Patient is . is [place]. 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 She denies any significance alcohol, drugs or tobacco. She lives in [place] with her family. Review of systems: In general patient has no complaints. SROM at 1600 hrs. with resultant clear fluid some contractionsvery mild noted Skin: Negative Lungs: No infectious symptoms or shortness of breath Cardiovascular: No chest pain or exercise intolerance Breasts: No lumps, changes in size, pain, dimpling, discharge or axillary or supraclavicular concerns. GI: Negative : changes. Musculoskeletal: Negative Neurological: Negative In general the patient is well-developed, well-nourished, pleasant female of stated age in no acute distress. On last evaluation clinic her blood pressure is 108/74. Her weight was 214.8 pounds with pregravid weight of 179. Height is 5 feet 8 inches. Prepregnancy BMI is 25.8. Skin is warm dry without lesions. HEENT, neck and back within normal limits. Lungs are clear with good breath sounds in all lung alfaro. Cardiovascular exam shows regular and rhythm without murmurs. Abdomen is flat, soft, nontender without masses or organomegaly. Positive bowel sounds are noted. No inguinal lymphadenopathy or hernias are noted. Genital per speculum bimanual shows normal external genitalia, BUS, pubic hair pattern. There is normal support, secretions and estrogenization vagina. Uterus is small, anterior, freely mobile, without parametrial induration or adnexal abnormalities. Extremities and neurological exam are grossly within normal limits. 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 History: Reports: Social & Family History - Family History Family Medical History: No Pertinent Family History - Living Situation & Occupation Living situation: Reports: Occupation: Student (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 at [employer] today.) H&P Review of Systems - Review of Systems: Review Of Systems: See Below L&D Exam - Exam Exam: See Below - Vital Signs Vital Signs: Last Vital Signs Temp 36.3 C 02/03/21 19:21 Pulse 109 H 02/03/21 19:21 Resp 14 02/03/21 19:21 BP 126/78 02/03/21 19:21 Pulse Ox 99 02/03/21 19:21 Weight: 97.522 kg - Patient Data Lab Results Last 24 hrs: Laboratory Results - last 24 hr 02/03/21 02/03/21 Range/Units 19:10 20:05 WBC 6.90 (3.98-10.04) K/mm3 RBC 4.31 (3.98-5.22) M/mm3 Hgb 12.1 (11.2-15.7) gm/dl Hct 37.3 (34.1-44.9) % MCV 86.5 D (79.4-94.8) fl MCH 28.1 (25.6-32.2) pg MCHC 32.4 (32.2-35.5) g/dl RDW Std Deviation 45.5 (36.4-46.3) fL Plt Count 204 (182-369) K/mm3 MPV 10.6 (9.4-12.3) fl Neut % (Auto) 75.8 H (34.0-71.1) % Lymph % (Auto) 17.2 L (19.3-51.7) % Teller % (Auto) 6.5 (4.7-12.5) % Eos % (Auto) 0.4 L (0.7-5.8) Baso % (Auto) 0.1 (0.1-1.2) % Neut # (Auto) 5.22 (1.56-6.13) K/mm3 Lymph # (Auto) 1.19 (1.18-3.74) K/mm3 Teller # (Auto) 0.45 H (0.24-0.36) K/mm3 Eos # (Auto) 0.03 L (0.04-0.36) K/mm3 Baso # (Auto) 0.01 (0.01-0.08) K/mm3 Membrane Rupture Positive H Result Diagrams: 02/03/21 20:05 - Problem List (1) 37 weeks gestation of SNOMED Code(s): 31976312 ICD Code: Z3A.37 - 37 WEEKS GESTATION OF Status: Acute Current Visit: Yes (2) Rupture of membranes with clear amniotic fluid SNOMED Code(s): 717129586, 294183783 ICD Code: [id number] - Status: Acute Current Visit: Yes Problem List Initiated/Reviewed/Updated: Yes Orders Last 24hrs: Active Orders 24 hr Category Date Time Status Patient Status [ADT] Routine ADT 02/03/21 19:21 Active Patient Status [ADT] Routine ADT 02/03/21 19:53 Active Activity as Tolerated [RC] PFP Care 02/03/21 19:53 Active Communication Order [RC] ASDIRECTED Care 02/03/21 19:53 Active Heart Tones [RC] ASDIRECTED Care 02/03/21 19:53 Active Non Stress Test [RC] PER UNIT ROUTINE Care 02/03/21 19:21 Active Non Stress Test [RC] PER UNIT ROUTINE Care 02/03/21 19:53 Active Notify Provider [RC] PFP Care 02/03/21 19:53 Active Notify Provider [RC] PRN Care 02/03/21 19:53 Active Peripheral IV Care [RC] . DIRECTED Care 02/03/21 19:53 Active Vital Signs [RC] PER UNIT ROUTINE Care 02/03/21 19:21 Active Vital Signs [RC] PER UNIT ROUTINE Care 02/03/21 19:53 Active CORONAVIRUS COVID-19 FAISAL [MOLEC] Stat Lab 02/03/21 20:00 Received DRUG SCREEN, URINE [URCHEM] Stat Lab 02/03/21 19:52 Ordered RAPID PLASMA REAGIN,RPR [CHEM] Routine Lab 02/03/21 20:05 Received Lactated Ringers [Ringers, Lactated] 1,000 ml Med 02/03/21 20:00 Active IV ASDIRECTED Nalbuphine [Nubain] Med 02/03/21 19:52 Active 10 mg IVPUSH Q2H PRN Oxytocin/Lactated Ringers [Pitocin in LR 10 Units/1,000 Med 02/03/21 20:00 Active ML] 10 unit in 1,000 ml IV .CONTINUOUS Sodium Chloride 0.9% [Saline Flush] Med 02/03/21 19:52 Active 10 ml FLUSH ASDIRECTED PRN Electronic Heart Tones Ext w TOCO [WOMSER] Oth 02/03/21 19:53 Ordered Routine Electronic Heart Tones Internal [WOMSER] Per Unit Oth 02/03/21 19:53 Ordered Routine Peripheral IV Insertion Adult [OM.PC] Routine Oth 02/03/21 19:53 Ordered Resuscitation Status Routine Resus Stat 02/03/21 19:21 Ordered Medication Orders Lactated Ringer's (Ringers, Lactated) 1,000 mls @ 100 mls/hr IV ASDIRECTED JUAQUIN Oxytocin/Lactated Ringer's (Pitocin In Lr 10 Units/1,000 Ml) 10 unit in 1,000 mls @ 500 mls/hr IV .CONTINUOUS JUAQUIN Nalbuphine HCl (Nalbuphine 10 Mg/1 Ml Vial) 10 mg IVPUSH Q2H PRN PRN Reason: Pain Sodium Chloride (Sodium Chloride 0.9% 10 Ml Syringe) 10 ml FLUSH ASDIRECTED PRN PRN Reason: Keep Vein Open Assessment/Plan Comment:: Assessment: 1. Zulema is a 30-year-old 5 para 1-0-3-1 female presently at 37-1/7 weeks gestational age with an SUMMER of 02/22/2021 in active labor with spontaneous rupture membranes with resultant clear amniotic fluid. 2. Group B strep screen is negative 3. Patient plans to breast-feed 4. Patient wants to do natural labor but is somewhat excepting of epidural if need be. She would like to play it by ear. 5. Less than optimal care with only 4 visits. 6. Tdap given at last clinic visit Plan: 1. Anticipate . Will augment labor as indicated by a labor contraction pattern to stay within 24 hours status post rupture membranes 2. Support breast-feeding decision 3. Pain control per patient desire 4. Initial labs upon admission CBC, RPR and drug screen.
[2021-02-04] MEDS ORDERED: Oxytocin/Lactated Ringers 10 UNIT/1,000 ML BAG IV SCH (01:45)
[2021-02-04] MEDS: Nalbuphine 10 MG/1 ML Vial IVPUSH PRN ×2 (05:36→09:41)
[2021-02-04] MEDS ORDERED: fentaNYL 100 MCG/2 ML SDV EPIDUR PRN (07:27)
[2021-02-04] MEDS ORDERED: diphenhydrAMINE 50 MG/ML SDV IVPUSH PRN (07:27)
[2021-02-04] MEDS ORDERED: ePHEDrine 50 MG/ML SDV IVPUSH PRN (07:27)
[2021-02-04] MEDS ORDERED: Bupivacaine/fentaNYL/NS 100 ML Bag EPIDUR PRN (07:27)
--- NOTE | 2021-02-04 08:00 | PCM.PNLD ---
Labor Progress Note - VS & Meds Vital Signs: Last Vital Signs Temp 36.3 C 02/03/21 19:21 Pulse 109 H 02/03/21 19:21 Resp 14 02/03/21 19:21 BP 126/78 02/03/21 19:21 Pulse Ox 99 02/03/21 19:21 Active Medications: Current Medications Diphenhydramine HCl (Diphenhydramine 50 Mg/Ml Sdv) 25 mg IVPUSH Q6H PRN PRN Reason: pruritis Ephedrine Sulfate (Ephedrine 50 Mg/Ml Sdv) 5 mg IVPUSH ASDIRECTED PRN PRN Reason: Hypotension Fentanyl (Fentanyl 100 Mcg/2 Ml Sdv) 100 mcg EPIDUR Q3H PRN PRN Reason: Pain Fentanyl/Bupivacaine HCl (Bupivacaine/Fentanyl/Ns 100 Ml Bag) 100 ml EPIDUR ASDIRECTED PRN PRN Reason: Pain Lactated Ringer's (Ringers, Lactated) 1,000 mls @ 100 mls/hr IV ASDIRECTED JUAQUIN Last Admin: 02/04/21 01:42 Dose: 100 mls/hr Documented by: Oxytocin/Lactated Ringer's (Pitocin In Lr 10 Units/1,000 Ml) 10 unit in 1,000 mls @ 500 mls/hr IV .CONTINUOUS JUAQUIN Oxytocin/Lactated Ringer's (Pitocin In Lr 10 Units/1,000 Ml) 10 unit in 1,000 mls @ 12 mls/hr IV TITRATE JUAQUIN; Protocol Last Titration: 02/04/21 06:00 Dose: 10 munits/min, 60 mls/hr Documented by: Nalbuphine HCl (Nalbuphine 10 Mg/1 Ml Vial) 10 mg IVPUSH Q2H PRN PRN Reason: Pain Last Admin: 02/04/21 05:36 Dose: 10 mg Documented by: Sodium Chloride (Sodium Chloride 0.9% 10 Ml Syringe) 10 ml FLUSH ASDIRECTED PRN PRN Reason: Keep Vein Open Discontinued Medications Lidocaine HCl (Lidocaine 1% 50 Ml Mdv) 50 ml INJECT ONETIME ONE Stop: 02/03/21 19:53 - Uterine Contractions Uterine Monitoring Mode: External Kipp Contraction Intensity: Moderate to Strong Uterine Resting Tone: Soft - Monitoring Heart Rate (FHR) Baseline: 155 Heart Rate (FHR) Variability: Moderate (6-25 bmp) Accelerations: Present, 15x15 Strip Review: Category I - Vaginal Exam Dilation (cm): 5 Effacement (Percent): 80 Station: -2 Cervical Position: Midposition - Labor Progress (Free Text) Labor Progress: Term SROM. Very uncomfortable. Still has pain from prior epidural so not candidate.
--- NOTE | 2021-02-04 11:27 | PCM.SN.2 ---
- Free Text/Narrative Note: Stage I -Patient presented with SROM. Progressed to complete with overall reassuring heart tones. Stage II - of viable female, weight 3120, 8/9 APGARS at 1059. Head delivered in controlled manner over intact perineum. Body and shoulders atraumatically. To maternal abdomen. Positive cry. Cord clamped and cut. Cord blood collected. Stage III - of intact placenta. 3vc. No laceration. EBL 20
[2021-02-04] MEDS: Benzocaine/Menthol 20%-0.5% Spray 56 GM Canister TOP PRN (13:59)
[2021-02-04] MEDS: Witch Hazel Medicated Pads 40/Jar TOP PRN (13:59)
[2021-02-04] MEDS: Ibuprofen 600 MG Tab PO PRN ×2 (13:59→20:09)
[2021-02-05] MEDS: Ibuprofen 600 MG Tab PO PRN ×3 (03:16→18:41)
[2021-02-05] MEDS: Docusate Sodium 100 MG Cap PO PRN ×2 (04:47→18:41)
--- NOTE | 2021-02-05 15:27 | PCM.SN.2 ---
- Free Text/Narrative Note: Post Progress Note PPD #1 Subjective: Doing well overall. Ambulating without difficulty. Lochia minimal. Voiding without difficulty. Reports that she did have a bowel movement this morning. Tolerating regular diet without nausea or vomiting. Pain controlled with oral medications. Breast-feeding with small amounts of formula supplementation with minimal difficulty. Objective: Vitals: Vital Signs - 24 hr 02/04/21 02/04/21 02/05/21 18:24 20:07 03:17 Temperature 36.8 C 36.4 C 36.4 C Pulse, 100 90 102 H Peripheral Respiratory 16 18 20 Rate Blood Pressure 112/82 123/74 121/70 O2 Sat by Pulse 98 100 99 Oximetry 02/05/21 10:08 Temperature 35.9 C L Pulse, 83 Peripheral Respiratory 16 Rate Blood Pressure 116/82 O2 Sat by Pulse 100 Oximetry Physical Exam General: Alert and oriented, no acute distress Lungs: Clear to auscultation bilaterally Heart: Regular rate and rhythm Abdomen: Soft, minimal appropriate tenderness, non-distended, fundus midline, nontender, and 1 fingerbreadth below the umbilicus Extremities: Trace edema in bilateral lower extremities to mid shins, no calf tenderness bilaterally ASSESSMENT: 30-year-old female -0-3-2 s/p normal vaginal delivery PPD #1, complicated by anti-M antibody but not of significance due to this not crossing the placenta PLAN: Doing well Breast-feeding with small amounts of formula supplementation with minimal difficulty. Assist as needed Lochia minimal. Continue to monitor for appropriate lochia. Continue routine care Anticipate discharge home tomorrow due to infant requiring bili lights Young Staples MD 3:26 PM 02/05/2021
[2021-02-05] MEDS: Witch Hazel Medicated Pads 40/Jar TOP PRN (18:42)
[2021-02-05] MEDS ORDERED: Hydrocortisone 1% Crm 30 GM Tube TOP PRN (18:48)
[2021-02-06] MEDS: Ibuprofen 600 MG Tab PO PRN (03:51)
[2021-02-06] MEDS: Docusate Sodium 100 MG Cap PO PRN (06:16)
[2021-02-06] MEDS: Benzocaine/Menthol 20%-0.5% Spray 56 GM Canister TOP PRN (06:16)
--- NOTE | 2021-02-06 07:43 | PCM.DCSUM1 ---
Discharge Summary - Hospital Course Diagnosis: Stroke: No - Discharge Data Discharge Date: 02/06/21 Discharge Disposition: Home, Self-Care 01 Condition: Good - Referral to Home Health Primary Care Physician: Yg Balderas MD - Patient Summary/Data Hospital Course: Stage I -Patient presented with SROM. Progressed to complete with overall reassu ring heart tones. Stage II - of viable female, weight 3120, 8/9 APGARS at 1059. Head delivered in controlled manner over intact perineum. Body and shoulders atraumatically. To maternal abdomen. Positive cry. Cord clamped and cut. Cord blood collected. Stage III - of intact placenta. 3vc. No laceration. EBL 20 Unremarkable course - Patient Instructions Diet: Usual Diet as Tolerated Activity: No Strenuous Activities Driving: May Drive Today Showering/Bathing: May Shower Notify Provider of: Fever, Increased Pain, Swelling and Redness, Drainage, Nausea and/or Vomiting - Discharge Plan *PRESCRIPTION DRUG MONITORING PROGRAM REVIEWED*: No *COPY OF PRESCRIPTION DRUG MONITORING REPORT IN PATIENT WOJCIECH: No Home Medications: Home Meds Pnv No.95/Ferrous Fum/Folic AC [ Tablet] 1 tab PO DAILY 04/11/17 [History] Promethazine HCl 12.5 mg PO Q6HR PRN 02/03/21 [History] ondansetron HCL [Zofran] 4 mg PO Q4HR PRN 02/03/21 [History] Referrals: Marilia Crawford MD [Physician] - (2 weeks) - Discharge Summary/Plan Comment DC Time >30 min.: No - General Info Date of Service: 02/06/21 Functional Status: Reports: Pain Controlled - Review of Systems General: Reports: No Symptoms HEENT: Reports: No Symptoms Pulmonary: Reports: No Symptoms Cardiovascular: Reports: No Symptoms Gastrointestinal: Reports: No Symptoms Genitourinary: Reports: No Symptoms Musculoskeletal: Reports: No Symptoms Skin: Reports: No Symptoms Neurological: Reports: No Symptoms Psychiatric: Reports: No Symptoms - Patient Data Vitals - Most Recent: Last Vital Signs Temp 36.6 C 02/06/21 03:43 Pulse 77 02/06/21 03:43 Resp 16 02/06/21 03:43 BP 91/51 L 02/06/21 03:43 Pulse Ox 97 02/06/21 03:43 Weight - Most Recent: 97.069 kg I&O - Last 24 hours: Intake & Output 02/05/21 02/06/21 02/06/21 22:59 06:59 14:59 Intake Total 120 Balance 120 Med Orders - Current: Current Medications Benzocaine/Menthol (Benzocaine/Menthol 20%-0.5% [place] 56 Gm Canister) 0 gm TOP ASDIRECTED PRN PRN Reason: Perineal Comfort Measure Last Admin: 02/06/21 06:16 Dose: 1 can Documented by: Docusate Sodium (Docusate Sodium 100 Mg Cap) 100 mg PO BID PRN PRN Reason: Constipation Last Admin: 02/06/21 06:16 Dose: 100 mg Documented by: Hydrocortisone (Hydrocortisone 1% Crm 30 Gm Tube) 0 gm TOP ASDIRECTED PRN PRN Reason: Hemorrhoids Last Admin: 02/05/21 21:15 Dose: 1 tube Documented by: Ibuprofen (Ibuprofen 600 Mg Tab) 600 mg PO Q6H PRN PRN Reason: Mild pain or fever Last Admin: 02/06/21 03:51 Dose: 600 mg Documented by: Bobbi Walter (Bobbi Quiñonezel Medicated Pads 40/Jar) 1 pad TOP ASDIRECTED PRN PRN Reason: Perineal Comfort Measure Last Admin: 02/05/21 18:42 Dose: 1 pad Documented by: Discontinued Medications Diphenhydramine HCl (Diphenhydramine 50 Mg/Ml Sdv) 25 mg IVPUSH Q6H PRN PRN Reason: pruritis Ephedrine Sulfate (Ephedrine 50 Mg/Ml Sdv) 5 mg IVPUSH ASDIRECTED PRN PRN Reason: Hypotension Fentanyl (Fentanyl 100 Mcg/2 Ml Sdv) 100 mcg EPIDUR Q3H PRN PRN Reason: Pain Fentanyl/Bupivacaine HCl (Bupivacaine/Fentanyl/Ns 100 Ml Bag) 100 ml EPIDUR ASDIRECTED PRN PRN Reason: Pain Lactated Ringer's (Ringers, Lactated) 1,000 mls @ 100 mls/hr IV ASDIRECTED JUAQUIN Last Admin: 02/04/21 01:42 Dose: 100 mls/hr Documented by: Oxytocin/Lactated Ringer's (Pitocin In Lr 10 Units/1,000 Ml) 10 unit in 1,000 mls @ 500 mls/hr IV .CONTINUOUS JUAQUIN Last Admin: 02/04/21 13:04 Dose: 999 mls/hr Documented by: Oxytocin/Lactated Ringer's (Pitocin In Lr 10 Units/1,000 Ml) 10 unit in 1,000 mls @ 12 mls/hr IV TITRATE JUAQUIN; Protocol Last Titration: 02/04/21 08:30 Dose: 12 munits/min, 72 mls/hr Documented by: Lidocaine HCl (Lidocaine 1% 50 Ml Mdv) 50 ml INJECT ONETIME ONE Stop: 02/03/21 19:53 Nalbuphine HCl (Nalbuphine 10 Mg/1 Ml Vial) 10 mg IVPUSH Q2H PRN PRN Reason: Pain Last Admin: 02/04/21 09:41 Dose: 10 mg Documented by: Sodium Chloride (Sodium Chloride 0.9% 10 Ml Syringe) 10 ml FLUSH ASDIRECTED PRN PRN Reason: Keep Vein Open - Exam General: Reports: Alert, Oriented HEENT: Reports: Pupils Equal, Pupils Reactive, EOMI, Mucous Membr. Moist/[place] Neck: Reports: Supple Lungs: Reports: Clear to Auscultation, Normal Respiratory Effort Cardiovascular: Reports: Regular Rate, Regular Rhythm GI/Abdominal Exam: Normal Bowel Sounds, Soft, Non-Tender, No Organomegaly, No Distention, No Abnormal Bruit, No Mass Rectal (Female) Exam: Normal Exam, Normal Rectal Tone Back Exam: Reports: Normal Inspection, Full Range of Motion Extremities: Normal Inspection, Normal Range of Motion, Non-Tender, No Pedal Edema, Normal Capillary Refill Skin: Reports: Warm, Dry, Intact Wound/Incisions: Reports: Healing Well Neurological: Reports: No New Focal Deficit Psy/Mental Status: Reports: Alert, Normal Affect, Normal Mood
[2021-02-06 12:09] VITALS: BP 120/73; PULSE 95
== END 2021-02-06 10:30 | disposition home or self-care (01) | DRG 560 ==
LOC: JD.OBCHECK 18:49 → JD.OB 18:52 → JD.OBCHECK 19:53 → JD.OB 20:07 → OBSVTOIN 02-04 10:59 → JD.OB 02-04 11:00
PROVIDERS: ADMIT Obstetrics & Gynecology; ATTEND Obstetrics & Gynecology
PROC: 10E0XZZ Delivery of Products of Conception, External Approach (ICD-10-PCS; principal; 2021-02-04)
DX: O99.62 Diseases of the digestive system complicating childbirth (principal); Z37.0 Single live birth; K21.9 Gastro-esophageal reflux disease without esophagitis; Z3A.37 37 weeks gestation of pregnancy; Z20.822 Contact with and (suspected) exposure to COVID-19
CPT/HCPCS: 36415; 51701; 59025; 59409; 80306; 84112; 85025; 86592; A9270-GY; J2300; J2590; J7120; U0002

== ENCOUNTER 2023-08-10 19:09 | Emergency (ER) | payer BC ==
[2023-08-10] MEDS ORDERED: Acetaminophen 325 MG Tab PO ONE (21:34)
[2023-08-11 03:53] VITALS: BP 128/75; PULSE 75
== END 2023-08-10 22:47 | disposition home or self-care (01) ==
LOC: JD.ED 19:09
DX: O99.891 Other specified diseases and conditions complicating pregnancy (principal); M25.511 Pain in right shoulder; Z79.899 Other long term (current) drug therapy; Z3A.11 11 weeks gestation of pregnancy
CPT/HCPCS: 73030; 76817; 99284; A9270

== ENCOUNTER 2024-02-18 20:36 | Inpatient (IN) | payer BC ==
[2024-02-18] MEDS ORDERED: Nalbuphine 10 MG/ML Syringe IVPUSH PRN (21:36)
[2024-02-18] MEDS ORDERED: Lidocaine 1% 50 ML MDV INJECT PRN (21:36)
[2024-02-18] MEDS ORDERED: Ondansetron 4 MG/2 ML SDV IVPUSH PRN (21:36)
[2024-02-18] MEDS ORDERED: Calcium Carbonate 500 MG Tab.Chew PO PRN (21:36)
[2024-02-18] MEDS ORDERED: Sodium Chloride 0.9% 10 ML Syringe FLUSH PRN (21:36)
[2024-02-18 21:52] LABS: BASOPHILS PERCENT AUTO 0.4 % (0.0-1.0); EOSINOPHILS PERCENT AUTO 0.1 % (0.0-6.0); HEMATOCRIT 39.8 % (37.0-47.0); HEMOGLOBIN 13.3 gm/dl (12.0-16.0); IMMATURE GRAN ABSOLUTE AUTO 0.04 K/mm3 (0.00-0.05); IMMATURE GRAN PERCENT AUTO 0.5 % (0.0-0.4); LYMPHOCYTES ABSOLUTE AUTO 1.7 K/mm3 (1.0-4.8); LYMPHOCYTES PERCENT AUTO 21.5 % (24.0-44.0); MEAN CORPUSCULAR HEMOGLOBIN 29.9 pg (28.0-32.0); MEAN CORPUSCULAR HGB CONC 33.4 g/dl (32.0-36.0); MEAN CORPUSCULAR VOLUME 89.4 fl (83.0-99.0); MEAN PLATELET VOLUME 11.1 fl (9.4-12.3); MONOCYTES ABSOLUTE AUTO 0.6 K/mm3 (0.0-0.8); MONOCYTES PERCENT AUTO 7.6 % (0.0-8.0); NEUTROPHILS ABSOLUTE AUTO 5.5 K/mm3 (1.8-7.7); NEUTROPHILS PERCENT AUTO 69.9 % (41.0-71.0); PLATELET COUNT,PLT 191 K/mm3 (150-400); RED BLOOD CELL COUNT 4.45 M/mm3 (4.10-5.30); WHITE BLOOD CELL COUNT,WBC 7.89 K/mm3 (3.9-11.3)
[2024-02-19] MEDS: Oxytocin/0.9 % Sodium Chloride 30 UNIT/500 ML BAG IV SCH (01:46)
[2024-02-19] MEDS: Lactated Ringers 1,000 ML IV SCH (01:46)
[2024-02-19] MEDS ORDERED: Docusate Sodium 100 MG Cap PO PRN (02:30)
[2024-02-19] MEDS ORDERED: Acetaminophen 325 MG Tab PO PRN (02:30)
[2024-02-19] MEDS: Benzocaine/Menthol 20%-0.5% Spray 78 GM Cannister TOP PRN (02:39)
[2024-02-19] MEDS: Witch Hazel Medicated Pads 40/Jar TOP PRN (02:39)
[2024-02-19] MEDS: Ibuprofen 600 MG Tab PO SCH ×2 (04:07→10:04)
[2024-02-19] MEDS ORDERED: Sodium Chloride 0.9% 10 ML Syringe FLUSH SCH (09:00)
[2024-02-20] MEDS: Ibuprofen 600 MG Tab PO SCH (00:50)
[2024-02-20 09:04] VITALS: BP 117/76; PULSE 73
== END 2024-02-20 11:30 | disposition home or self-care (01) | DRG 560 ==
LOC: JD.OBCHECK 20:36 → JD.OB 20:39 → OBSVTOIN 02-19 01:53 → JD.OB 02-19 01:54
PROVIDERS: ADMIT Obstetrics & Gynecology; ATTEND Obstetrics & Gynecology
PROC: 10E0XZZ Delivery of Products of Conception, External Approach (ICD-10-PCS; principal; 2024-02-19)
PROC: 10907ZC Drainage of Amniotic Fluid, Therapeutic from Products of Conception, Via Natural or Artificial Opening (ICD-10-PCS; 2024-02-19)
DX: O69.81X0 Labor and delivery complicated by cord around neck, without compression, not applicable or unspecified (principal); Z37.0 Single live birth; Z3A.39 39 weeks gestation of pregnancy
CPT/HCPCS: 36415; 59025; 59409; 85025; 86592; 86850; 86870; 86900; 86901; A9270-GY; J7120

== ENCOUNTER 2025-07-07 09:54 | Inpatient (IN) | payer BC ==
[2025-07-07] MEDS ORDERED: Ondansetron 4 MG/2 ML SDV IVPUSH PRN (09:57)
[2025-07-07] MEDS ORDERED: Nalbuphine 10 MG/1 ML Vial IVPUSH PRN (09:57)
[2025-07-07] MEDS ORDERED: Sodium Chloride 0.9% 10 ML Syringe FLUSH PRN (09:57)
[2025-07-07] MEDS ORDERED: Lactated Ringers 1,000 ML IV SCH (10:00)
[2025-07-07] MEDS ORDERED: Oxytocin/0.9 % Sodium Chloride 30 UNIT/500 ML BAG IV SCH (10:00)
[2025-07-07] MEDS ORDERED: Oxytocin 10 Units/1 ML SDV ONE (10:12)
[2025-07-07] MEDS: Oxytocin 10 Units/1 ML SDV IM ONE (10:15)
[2025-07-07 11:07] LABS: BASOPHILS ABSOLUTE AUTO 0.0 K/mm3 (0.0-0.2); BASOPHILS PERCENT AUTO 0.3 % (0.0-1.0); EOSINOPHILS ABSOLUTE AUTO 0.0 K/mm3 (0.0-0.4); EOSINOPHILS PERCENT AUTO 0.0 % (0.0-6.0); IMMATURE GRAN ABSOLUTE AUTO 0.08 K/mm3 (0.00-0.05); IMMATURE GRAN PERCENT AUTO 0.8 % (0.0-0.4); LYMPHOCYTES ABSOLUTE AUTO 0.8 K/mm3 (1.0-4.8); LYMPHOCYTES PERCENT AUTO 7.8 % (24.0-44.0); MEAN PLATELET VOLUME 10.5 fl (9.4-12.3); MONOCYTES ABSOLUTE AUTO 0.3 K/mm3 (0.0-0.8); MONOCYTES PERCENT AUTO 3.4 % (0.0-8.0); NEUTROPHILS ABSOLUTE AUTO 8.7 K/mm3 (1.8-7.7); NEUTROPHILS PERCENT AUTO 87.7 % (41.0-71.0); NRBC ABSOLUTE 0.00 (0.00-0.02); NRBC PERCENT 0.0 % (0.0-0.2); PLATELET COUNT,PLT 160 K/mm3 (150-400); RED BLOOD CELL COUNT 4.59 M/mm3 (4.10-5.30); WHITE BLOOD CELL COUNT,WBC 9.91 K/mm3 (3.9-11.3)
[2025-07-07] MEDS ORDERED: Sodium Chloride 0.9% 10 ML Syringe FLUSH SCH (21:00)
[2025-07-08] MEDS: Benzocaine/Menthol 20%-0.5% Spray 78 GM Cannister TOP PRN (06:39)
[2025-07-08] MEDS: Witch Hazel Medicated Pads 40/Jar TOP PRN (06:39)
[2025-07-08 14:10] VITALS: BP 112/70; PULSE 99
== END 2025-07-08 15:00 | disposition home or self-care (01) | DRG 560 ==
LOC: JD.OBCHECK 09:54 → JD.OB 09:55 → JD.OBCHECK 09:56 → JD.OB 09:57 → OBSVTOIN 14:58 → JD.OB 14:58
PROVIDERS: ADMIT Obstetrics & Gynecology; ATTEND Obstetrics & Gynecology
PROC: 10E0XZZ Delivery of Products of Conception, External Approach (ICD-10-PCS; principal; 2025-07-07)
DX: O77.0 Labor and delivery complicated by meconium in amniotic fluid (principal); Z3A.39 39 weeks gestation of pregnancy; Z37.0 Single live birth; Z79.899 Other long term (current) drug therapy; Z98.890 Other specified postprocedural states
CPT/HCPCS: 36415; 59409; 85025; 86592; 86850; 86870; 86900; 86901; A9270-GY; J2590